=== PATIENT | female | born 1995 | race African-American/Black ===

== ENCOUNTER 2016-06-26 15:09 | Emergency (ER) | payer OTHER ==
[~2016-06-26] VITALS: Ht 165.1 cm; Wt 72.6 kg
[2016-06-26] MEDS ORDERED: PRENATAL TABLE1 EAC2 PO (18:01)
[2016-06-26] MEDS ORDERED: NEXPLANON68 M1 (18:01)
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
[2016-06-26] MEDS ORDERED: NAPROSYN500 M1 PO (18:56)
[2016-06-26] MEDS ORDERED: CYCLOBENZAPRINE5 M2 PO (18:56)
[2016-06-26 18:59] VITALS: BP 128/70
== END 2016-06-26 19:02 ==
LOC: ERH 15:09
DX: R51 Headache (principal); M54.5 Low back pain; M79.1 Myalgia; V47.5XXA Car driver injured in collision with fixed or stationary object in traffic accident, initial encounter; Y93.9 Activity, unspecified; Y92.411 Interstate highway as the place of occurrence of the external cause
CPT/HCPCS: 72110; 81025